=== PATIENT | female | born 1985 | race Caucasian/White ===

== ENCOUNTER 2018-10-17 08:29 | Emergency (ER) | payer OTHER ==
[~2018-10-17] VITALS: Ht 170.2 cm; Wt 83.6 kg
[2018-10-17] MEDS ORDERED: DEXAMETHASONE 4 MG TABLET PO ONE (12:45)
[2018-10-17 13:10] VITALS: BP 126/81
== END 2018-10-17 13:27 | disposition home or self-care (01) ==
LOC: EMS 08:32
DX: J02.9 Acute pharyngitis, unspecified (principal); Z88.1 Allergy status to other antibiotic agents
CPT/HCPCS: 81025; 87430; 99283; J8540

== ENCOUNTER 2020-08-16 12:27 | Emergency (ER) | payer OTHER ==
[~2020-08-16] VITALS: Ht 160 cm; Wt 100.0 kg
[2020-08-16] MEDS ORDERED: ACETAMINOPHEN 325 MG TABLET PO ONE (14:30)
[2020-08-16 14:45] VITALS: BP 140/70
== END 2020-08-16 14:46 | disposition home or self-care (01) ==
LOC: EMS 12:31
DX: S51.812A Laceration without foreign body of left forearm, initial encounter (principal); Z88.1 Allergy status to other antibiotic agents; W45.8XXA Other foreign body or object entering through skin, initial encounter; Y93.89 Activity, other specified; Y92.89 Other specified places as the place of occurrence of the external cause; Y99.0 Civilian activity done for income or pay
CPT/HCPCS: 12002; 99282; Z7502; Z7610

== ENCOUNTER 2022-08-29 23:47 | Emergency (ER) | payer OTHER ==
[~2022-08-29] VITALS: Ht 167.6 cm; Wt 81.8 kg
[2022-08-29] MEDS ORDERED: URSO300C4 PO (23:53)
[2022-08-30] MEDS ORDERED: LIDOCAINE 1% 10 ML VIAL SQ ONE (00:30)
[2022-08-30 00:56] VITALS: BP 109/72
== END 2022-08-30 01:06 | disposition home or self-care (01) ==
LOC: EMS 23:49
DX: T16.1XXA Foreign body in right ear, initial encounter (principal); H66.91 Otitis media, unspecified, right ear; Z98.890 Other specified postprocedural states; X58.XXXA Exposure to other specified factors, initial encounter; Y93.89 Activity, other specified; Y92.89 Other specified places as the place of occurrence of the external cause; Y99.8 Other external cause status
CPT/HCPCS: 99283; J3490

== ENCOUNTER 2024-02-05 18:20 | Emergency (ER) | payer OTHER ==
[~2024-02-05] VITALS: Ht 165.1 cm; Wt 66.8 kg
[~2024-02-05 18:20] MED LIST: URSO300C4 PO
[2024-02-05] MEDS ORDERED: ACET-2247 PO ×2 (18:27→22:27)
[2024-02-05 22:16] VITALS: BP 151/82; PULSE 80; RESP 16; TEMP 98.2; O2SAT 98
[2024-02-05] MEDS: ACETAMINOPHEN 325 MG TABLET PO ONE (22:20)
== END 2024-02-05 22:28 | disposition home or self-care (01) ==
LOC: EMS 18:20
DX: S40.012A Contusion of left shoulder, initial encounter (principal); W22.8XXA Striking against or struck by other objects, initial encounter; Y93.89 Activity, other specified; Y92.89 Other specified places as the place of occurrence of the external cause; Y99.8 Other external cause status
CPT/HCPCS: 99283

== ENCOUNTER 2024-12-06 22:24 | Emergency (ER) | payer OTHER ==
[~2024-12-06] VITALS: Ht 165.1 cm; Wt 69.5 kg
[~2024-12-06 22:24] MED LIST changes: +ACET-2247 PO; -URSO300C4 PO
[2024-12-06 22:31] VITALS: TEMP 98.3
[2024-12-06] MEDS: PANTOPRAZOLE SODIUM 40 MG/VIAL IVP ONE (23:31)
[2024-12-06 23:35] LABS: PLATELET COUNT (AUTO) 250 K/uL (150-450); RED BLOOD CELL COUNT(AUTO) 4.08 MIL/uL (4.00-5.20); RED CELL DISTRIBUTION WIDTH 12.8 % (11.5-14.5); WHITE BLOOD COUNT (AUTO) 9.2 K/uL (4.5-11.0)
[2024-12-06 23:49] LABS: CALCIUM, TOTAL 9.0 mg/dL (8.8-10.5); CREATININE 0.56 mg/dL (0.60-1.30); GLOMERULAR FILTR. RATE CALC > 60 mL/min (>60); GLUCOSE,RANDOM 90 mg/dL (70-110); SODIUM SERUM 143 mmol/L (136-145); UREA NITROGEN, BLOOD 26 mg/dL (7-18)
[2024-12-06 23:54] LABS: ASPARTATE AMINOTRANSFERASE 16.0 U/L (15-37); TOTAL PROTEIN, SERUM 7.1 g/dL (6.4-8.2)
[2024-12-07] MEDS: SODIUM CHLORIDE 0.9% 1,000 ML IV ONE (00:03)
[2024-12-07 00:12] VITALS: BP 125/68; PULSE 84; RESP 16; O2SAT 99
[2024-12-07] MEDS ORDERED: PANT-31 PO (00:20)
== END 2024-12-07 00:53 | disposition home or self-care (01) ==
LOC: EMS 22:26
DX: R10.9 Unspecified abdominal pain (principal); Z88.1 Allergy status to other antibiotic agents
CPT/HCPCS: 99284; 96374; 80048; 80076; 83690; 84703; 85025; 36415; 93005; J2470; J7030